=== PATIENT | male | born 1950 | race Caucasian/White ===

== ENCOUNTER 2018-02-24 20:37 | Emergency (ER) | payer MEDICARE, SELFPAY ==
[2018-02-24 20:38] VITALS: BP 161/81; PULSE 57; RESP 14; TEMP 36.9; O2SAT 98; BMI 23.4
[2018-02-24] MEDS: Ondansetron 4 MG/2 ML Vial IV (21:42)
[2018-02-24] MEDS: 0.9% Normal Saline 1,000 ML 150 ML IV (21:42)
[2018-02-24] MEDS: Glucagon 1 MG/ML Syringe IV (21:42)
--- NOTE | 2018-02-24 22:20 | GASB_PTH ---
PATIENT: MAVIS HOFFMAN LOC: ED U#:[id number] AGE/SX: 67/M ROOM: RE02/24/[address]: Dr. Arun Schwab MD : 1950 BED: DIS: 02/25/2018 SPEC #: [id number] RECD: 02/27/18 08:04 STATUS: RAFA VIKAS #: [id number] NADINE: 02/24/18 22:[address]: Tenzin Larson DEPT: SURGICAL PATHOLOGY RECD BY: Tim Carnes ENTERED: 02/27/18 08:05 SP TYPE: Gastric Bx OTHR DR: MD Dr. Gustavo Lowery MD Dr. Sam Lofgren, MD Tissues: Gastric mucous membrane Esophageal mucous membrane Procedures: Surgery Specimen Level IV Comments: @ Ordering doctor for SUIV edited from to @ by RGOOD at 02/27/18 1542 @ Submitting doctor edited from to @ by RGOOD at 02/27/18 1542 HEADER OPERATION: EGD ([facility] [place]) PRE-OP DIAGNOSIS: Food impaction TISSUE SUBMITTED: Biopsy mid esophagus, test for eosinophilic esophagitis MICROSCOPIC DIAGNOSIS Mid esophagus, biopsy: Fragments of squamous epithelium with congestion. Negative for eosinophilic esophagitis. See comment. SJ:dashawn 02/28/18 COMMENT Increased number of eosinophils consistent with eosinophilic esophagitis are not seen. Correlation with clinical, endoscopic findings and appropriate follow up are necessary. MICROSCOPIC DESCRIPTION Slides are reviewed. GROSS DESCRIPTION Received in fixative is one container labeled with the patient's name and designated biopsy mid esophagus, test for eosinophilic esophagitis. The specimen consists of multiple irregular fragments of light glass soft tissue that in aggregate measure 0.3 x 0.3 x 0.1 cm. The specimen is totally submitted in one cassette. / JEANINE:dashawn 02/27/18 TC:5 CPT: 65391
[2018-02-24] MEDS: Propofol 200 MG/20 ML Vial IV BOLUS (23:02)
[2018-02-24 23:20] VITALS: BP 126/107; BP 126/70; PULSE 54; RESP 14; O2SAT 93
[2018-02-24 23:25] VITALS: BP 121/70; BP 126/107; BP 126/70; BP 128/57; BP 134/56; BP 143/126; PULSE 55; PULSE 56; PULSE 59; PULSE 64; PULSE 75; PULSE 78; RESP 12; RESP 19; RESP 20; O2SAT 100; O2SAT 92; O2SAT 96; O2SAT 97; O2SAT 98
--- NOTE | 2018-02-24 23:27 | PCM.PN.SRG ---
Subjective: Patient reports that he was at dinner tonight and feels food sticking. He has been vomiting and unable to control his saliva since then. He describes the sensation as food stuck in his lower esophagus. He says this is happened before about a year and a half ago and he intermittently feels food sticking but he does get through. - Physical Exam General: Alert, Oriented x3, Cooperative Neck: No JVD Lungs: Normal air movement Cardiovascular: Regular rate, Regular Rhythm Abdomen: Soft, Non Tender, Non-Distended Vital Signs Temp Pulse Resp BP Pulse Ox 98.4 F 57 L 14 161/81 H 98 02/24/18 20:38 02/24/18 20:38 02/24/18 20:38 02/24/18 20:38 02/24/18 20:38 Oxygen Delivery Method Room Air Weight: 192 lb 7.417 oz Body Mass Index (BMI) 23.4 Medical Necessity - Tobacco Use Smoking Status: Never smoker Assessment/Plan 67-year-old male with impaction of food 1. The patient has the sensation of food sticking and he has had a full obstruction about a year and a half ago. He reports dinner tonight he felt like food stuck and he was unable to eat or drink after this. 2. I recommend EGD to relieve the impaction. I explained endoscopy in detail to the patient. I explained the risks including but not limited to stroke or heart attack with anesthesia, perforation of the GI tract, bleeding, infection. I explained that any of these could necessitate further emergency surgery. The patient understands and all questions were answered sufficiently. The patient wishes to proceed with procedure. Tenzin aLrson MD Pager: [facility] [address] [place] [address], [address] [place] [address] Office:
--- NOTE | 2018-02-24 23:28 | PCM.OPRPT ---
Problem List (1) Food impaction of esophagus Status: Acute Qualifiers: Encounter type: initial encounter Qualified Code(s): T18.128A - Food in esophagus causing other injury, initial encounter Report of Operation Date of Procedure: 02/24/18 Pre-Operative Diagnosis: Food impaction Post-Operative Diagnosis: GE junction stricture, hiatal hernia, esophagitis Surgery/Procedure Performed:: EGD with biopsy Specimen's removed: Biopsy of midesophagus for eosinophilic esophagitis Description of Procedure: Moderate sedation was achieved by the emergency physician. The endoscope was placed into the mouth and down into the esophagus. The esophagus was highly irritated and friable. The GE junction appeared to have a stricture but there is no impacted food. There was a hiatal hernia. The scope was advanced into the stomach and the stomach appeared normal. The scope was advanced to duodenum and this appeared normal as well. The scope was retracted and retroflexed and a hiatal hernia was observed. The scope was straightened and brought into the GE junction. It appeared this was the area of obstruction as this was tight and friable. The scope was easily passed through this area. Biopsies of the midesophagus were performed with cold forceps to rule out eosinophilic esophagitis. The scope was then removed from the patient and the patient tolerated the procedure well.
[2018-02-24 23:29] VITALS: BP 124/75; PULSE 50; RESP 19; O2SAT 98
[2018-02-24 23:30] VITALS: BP 126/70; BP 127/75; PULSE 56; RESP 12; O2SAT 94
[2018-02-24 23:35] VITALS: BP 126/70; BP 129/75; PULSE 55; RESP 12; O2SAT 94
--- NOTE | 2018-02-24 23:37 | ED.DCSUM_ITS ---
- ER Visit Summary Date of Service: 02/24/18 Chief Complaint: Esophageal impaction History of Present Illness: The patient is a [address] Donaldson. He reports that he was eating roast beef for dinner and had approximate 6 works full when he began hiccuping and coughing up clear saliva. States that he has vomited twice since this and he vomited food that he had eaten prior to the roast beef. However, he remains unable to swallow his saliva. Patient describes a sensation of a knot in his stomach that is 6 out of 10 at worst 3-10 currently. Is worsened by hiccups and relieved by nothing. Denies any diarrhea. Last bowel was today. He has had no melena hematochezia. No dysuria frequency. Physical Examination: Vitals: Stable. Afebrile. General: Well-nourished and well-developed. Head: Normocephalic atraumatic. Neck: Supple, no lymphadenopathy. No JVD. Nontender. Cardiovascular: Regular rate and rhythm. No murmurs. Respiratory: No respiratory distress. Clear to auscultation bilaterally. Abdominal: Soft, nontender, nondistended, normal bowel sounds. No guarding, rebound, or peritoneal signs. Back: Nontender. Extremities: Nontender, no edema. Skin: Normal color, no rash. Neurologic: Alert and oriented ?3. Cranial nerves II through XII are intact. Normal strength and sensation. Psych: Normal affect. Emergency Department Course and Treatment: Patient arrived with a bucket that has a significant amount of saliva in it. He has been unable to swallow his saliva here to spitting this in the bucket. He was given glucagon and Zofran IV. We did try a p.o. challenge with coke and he immediately brought back up this and more saliva. Clinically it seems as though he has an esophageal meat impaction. The patient was discussed with Dr. Villa and she reports that she does not take care of esophageal impactions. He was then discussed with Dr. Larson who agreed to come the emergency department to evaluate the patient. Patient had procedural sedation undertaken with propofol and had endoscopy performed. This did not show an esophageal impaction at that time. However, he did have a hiatal hernia, esophageal stricture, and diffuse esophagitis. Biopsies were taken. Following the endoscopy the patient was able to drink and swallow his saliva without any difficulty. Treatment Plan: Patient will be discharged instructions for Dr. Larson within a week for further evaluation and treatment. Return to the emergency department for any worsening symptoms. Disposition: To home in improved and stable condition. Impression: 1. Esophageal impaction, resolved. 2. Procedural sedation. This note was generated with [employer] dictation software. It may contain incorrect words, spelling, and punctuation that were not noted in review of the chart prior to signing ED Disposition - Plan for ED Patient: Disposition: Home or Assisted Living Chief Complaint: Nausea/Vomiting Instructions: ED Foreign Body Esophageal Rslv Referrals: Tenzin Larson MD [STAFF PHYSICIAN] - 1 Week
[2018-02-25 00:02] VITALS: BP 139/80; PULSE 59; RESP 18; O2SAT 98
== END 2018-02-25 00:03 | disposition home or self-care (01) ==
PROVIDERS: Surgery; Emergency Provider Emergency Medicine; Family Provider Family Medicine; PCP Family Medicine
PROC: 0DJ08ZZ Inspection of Upper Intestinal Tract, Via Natural or Artificial Opening Endoscopic (ICD-10-PCS; CPT 43235; principal; 2018-02-24 22:15)
DX: T18.128A Food in esophagus causing other injury, initial encounter (principal); X58.XXXA Exposure to other specified factors, initial encounter; Y93.89 Activity, other specified; Y92.9 Unspecified place or not applicable; K22.2 Esophageal obstruction; K20.9 Esophagitis, unspecified; K44.9 Diaphragmatic hernia without obstruction or gangrene; I10 Essential (primary) hypertension; J45.909 Unspecified asthma, uncomplicated; Z79.899 Other long term (current) drug therapy
CPT/HCPCS: 43239; 88305; 96361; 96374; 96375; 99284; J7030; A4216; J1610; J2405

== ENCOUNTER 2018-04-04 07:26 | Day surgery (SDC) | payer MEDICARE, SELFPAY ==
[2018-04-04] VITALS (7 sets, daily range): BP systolic 91–149; BP diastolic 67–96; PULSE 48–55; RESP 16–18; TEMP 36.2–36.7; O2SAT 92–95; BMI 23.4
--- NOTE | 2018-04-04 09:33 | OP.ENDO_ITS ---
Patient Name: Chilango Butt Procedure Date: 04/04/2018 8:35 AM Date of : 1950 Age: 67 Procedure: Upper GI endoscopy Indications: Stricture of the esophagus Providers: Tenzin Larson MD Medicines: Monitored Anesthesia Care Patient Profile: He is status post EGD for foreign body removal within the past three months. Complications: No immediate complications. Procedure: Pre-Anesthesia Assessment: - Prior to the procedure, a History and Physical was performed, and patient medications and allergies were reviewed. The patient's tolerance of previous anesthesia was also reviewed. The risks and benefits of the procedure and the sedation options and risks were discussed with the patient. All questions were answered, and informed consent was obtained. Prior Anticoagulants: The patient has taken no previous anticoagulant or antiplatelet agents. After reviewing the risks and benefits, the patient was deemed in satisfactory condition to undergo the procedure. After obtaining informed consent, the endoscope was passed under direct vision. Throughout the procedure, the patient's blood pressure, pulse, and oxygen saturations were monitored continuously. The gastroscope was introduced through the mouth, and advanced to the second part of duodenum. The upper GI endoscopy was accomplished without difficulty. The patient tolerated the procedure well. Scope In: 8:48:28 AM Scope Out: 8:59:43 AM Total Procedure Duration Time 0 hours 11 minutes 15 seconds Findings: One stenosis was found. This stenosis was moderately severe and measured 1.3 cm (inner diameter) x less than one cm (in length). The stenosis was traversed. A TTS dilator was passed through the scope. Dilation with a 12-13.5-15 mm balloon and a 15-16.5-18 mm balloon dilator was performed to 18 mm. The dilation site was examined following endoscope reinsertion and showed complete resolution of luminal narrowing. Estimated blood loss was minimal. The stomach was normal. The examined duodenum was normal. The cardia and gastric fundus were normal on retroflexion. Impression: - Esophageal stenosis. Dilated. - Normal stomach. - Normal examined duodenum. - No specimens collected. Recommendation: - Discharge patient to home. - Resume previous diet. - Continue present medications. - Follow up in 2-3 weeks, call for appointment [phone] . Procedure Code(s): --- Professional --- 70293, Esophagogastroduodenoscopy, flexible, transoral; with transendoscopic balloon dilation of esophagus (less than 30 mm diameter) CPT copyright 2017 [employer]. All rights reserved. The codes documented in this report are preliminary and upon lead nuclear medicine technologist review may be revised to meet current compliance requirements. Tenzin Larson MD 04/04/2018 9:15:17 AM Number of Addenda: 0 Note Initiated On: 04/04/2018 8:35 AM
== END 2018-04-04 09:56 | disposition home or self-care (01) ==
LOC: EN 07:27 → AC 07:28
PROVIDERS: Family Provider Family Medicine; PCP Family Medicine; Visit Provider Surgery
PROC: 0DJ08ZZ Inspection of Upper Intestinal Tract, Via Natural or Artificial Opening Endoscopic (ICD-10-PCS; CPT 43235; principal; 2018-04-04 08:25)
DX: K22.2 Esophageal obstruction (principal); K21.9 Gastro-esophageal reflux disease without esophagitis; I10 Essential (primary) hypertension; J45.909 Unspecified asthma, uncomplicated; Z79.899 Other long term (current) drug therapy
CPT/HCPCS: 43249; J7120

== ENCOUNTER 2020-09-11 06:13 | Outpatient (RCR) | payer MEDICARE, SELFPAY ==
[2018-04-04 07:47] VITALS: BMI 23.4
[2020-09-11] MEDS: COVID-19 VACC, MRNA(PFIZER)/PF 30 MCG/0.3 ML SYRINGE IM (15:11)
[2020-10-02] MEDS: COVID-19 VACC, MRNA(PFIZER)/PF 30 MCG/0.3 ML SYRINGE IM (14:33)
== END 2020-12-16 23:59 ==
LOC: IMMUN 06:13
PROVIDERS: PCP Family Medicine; Referring Provider Family Medicine; Visit Provider Family Medicine
DX: Z23 Encounter for immunization (principal)
CPT/HCPCS: 0001A; 0002A; 91300